=== PATIENT | male | born 1995 | race Caucasian/White ===

== ENCOUNTER 2017-01-26 17:17 | Emergency (ER) | payer BC ==
[~2017-01-26] VITALS: Ht 177.8 cm; Wt 97.0 kg
[~2017-01-26 17:17] MED LIST: CLR10 PO; CLXUNK PO; RSPUNK PO
[2017-01-26 17:21] VITALS: Ht 177.8 cm; Wt 97.0 kg
[2017-01-26] MEDS ORDERED: LISD60CA PO (17:36)
[2017-01-26 17:53] VITALS: TEMP 37
[2017-01-26] MEDS ORDERED: OXYCODONE HCL IR 5 MG TAB (IMMEDIATE RELEASE) PO STA (17:53)
[2017-01-26] MEDS ORDERED: CLIN150C PO (18:00)
[2017-01-26] MEDS ORDERED: CLINDAMYCIN HCL 150 MG CAP PO ONE (18:00)
[2017-01-26] MEDS ORDERED: OXYC1TAB3 PO (18:03)
[2017-01-26 18:12] VITALS: BP 142/70; PULSE 94; O2SAT 99
--- NOTE | 2017-01-26 21:19 | EMERGENCY ROOM VISIT NOTE ---
History Report prepared by Jovita: Madonna Barnes Under the Supervision of: Dr. Dustin Anderson D.O. First contact with patient: 17:25 Chief Complaint: DENTAL PAIN Stated Complaint: TOOTH PAIN, SWELLING REDNESS Nursing Triage Summary: right sided facial pain and swelling History of Present Illness The patient is a 21 year old male who presents to the Emergency Room with complaints of constant severe tooth pain beginning the other day. The patient states that the other day he began to feel tooth burning but the pain completely went away until today when he started to have severe tooth pain. He reports that he has a history of chipping his teeth with eating and normally has no pain with the chipping. The patient complains of facial swelling, radiating pain into right cheek, and throbbing pain. He denies any fever, chills , difficulty swallowing, pain with movement of eyes, swelling in his throat, and ear pain. He reports that his pain is worsened when something touches it and he has been taking ibuprofen without relief of symptoms. Source of History: patient Onset: the other day Position: teeth Symptom Intensity: severe Quality: other (throbbing) Timing: constant Modifying Factors (Worsening): other (touch) Associated Symptoms: No chills, No fevers Note: The patient complains of facial swelling, radiating pain into right cheek, and throbbing pain. He denies any difficulty swallowing, pain with movement of eyes , and ear pain. Review of Systems See HPI for pertinent positives & negatives. A total of 10 systems reviewed and were otherwise negative. Past Medical & Surgical Medical Problems: (1) ADHD (attention deficit hyperactivity disorder) Family History No pertinent family history stated. Social History Smoking Status: Current Every Day Smoker Marital Status: in relationship Occupation Status: employed Current/Historical Medications Scheduled Clindamycin Hcl (Cleocin), 450 MG PO TID Lisdexamfetamine Dimesylate (Vyvanse), 1 CAP PO DAILY Scheduled PRN Oxycodone Immediate Rel Tab (Roxicodone Ir), 5 MG PO Q4H PRN for Severe Pain Allergies Coded Allergies: Penicillins (Unverified Allergy, Unknown, 01/26/17) Physical Exam Vital Signs Date Time Temp Pulse Resp B/P Pulse Ox O2 Delivery O2 Flow Rate FiO2 01/26/17 18:12 94 16 142/70 99 01/26/17 17:53 37.0 01/26/17 17:21 84 20 154/89 98 Room Air Physical Exam GENERAL: sitting up in bed, uncomfortable, no distress, non-toxic EYE EXAM: normal conjunctiva, PERRL and EOM's intact EAR EXAM: TMs clear bilaterally. OROPHARYNX: no exudate, no erythema, lips, buccal mucosa, and tongue normal and mucous membranes are moist. No posterior pharyngeal swelling, no submandibular swelling, normal bonation, tolerating secretion, tenderness over the right upper 4,5 teeth, no appreciable abscess, mild swelling over the right cheek without significant erythema, no orbital involvement. NECK: supple, no nuchal rigidity, no adenopathy, non-tender, no stridor LUNGS: Clear to auscultation. Normal chest wall mechanics HEART: no murmurs, S1 normal and S2 normal ABDOMEN: abdomen soft, non-tender, normo-active bowel sounds, no masses, no rebound or guarding. UPPER EXTREMITIES: upper extremities are grossly normal. LOWER EXTREMITIES: No pitting edema. NEURO EXAM: Normal sensorium Medical Decision & Procedures Medications Administered Medications (Trade) Dose Ordered Sig/Jyotsna Route Start Time Stop Time Status Last Admin Dose Admin Clindamycin HCl (Cleocin Cap) 450 mg ONE ONCE PO 01/26/17 18:00 01/26/17 18:01 DC 01/26/17 18:07 450 MG Oxycodone HCl (Roxicodone Immediate Rel Tab) 5 mg NOW STAT PO 01/26/17 17:53 01/26/17 17:56 DC 01/26/17 18:06 5 MG ED Course ED COURSE: Vital signs were reviewed and normal The patients medical record was reviewed The above diagnostic studies were performed and reviewed. ED treatments and interventions as stated above. 1725: The patient was evaluated in room A9. A complete history and physical examination was performed. 1753: Oxycodone HCl 5mg PO. 1800: Cleocin Cap 450mg PO. 1801: Upon reevaluation, the patient is hemodynamically stable.I discussed my findings with the patient and he understands and agrees with the treatment plan. Based on the patients age, coexisting illnesses, exam and lab findings the decision to treat as an outpatient was made. The patient remained stable while under my care. The patient appeared well at the time of discharge. Medical Decision Differential diagnoses includes but is not limited to dental fracture, dental carries, and dental abscess. Patient is a 21-year-old male who presents to ER for dental pain on his #4. He notes that he has significant amount of pain and some swelling. Patient has no other complaints at this time. On exam there is no signs of preseptal or septal cellulitis. There is no signs of Dean angina. He has no trouble swallowing or pain back in her throat. Vitals are unremarkable. There is no periapical abscess. Patient was otherwise well-appearing. He does have an allergy to penicillins consequently was given clindamycin. I did not feel there is any benefit of blood work at this time. He was given OxyIR and discharged to follow-up with oral maxillary facial or his dentist on Saturday. Any worsening of his symptoms he was given strict instructions to return to the ER. Discussed with Pt concerning signs and symptoms to watch out for. Pt was instructed to follow up with their PCP and discussed with the patient their option to return to the ED at anytime for persistent or worsening symptoms. The appropriate anticipatory guidance and out-patient management, including indications for return to the emergency department, were explained at length to the patient and understood. [place] Drug Monitoring Program Search Results: patient reviewed within database, no issues identified Impression Primary Impression: Dental abscess Additional Impression: Pain, dental Scribe Attestation The scribe's documentation has been prepared under my direction and personally reviewed by me in its entirety. I confirm that the note above accurately reflects all work, treatment, procedures, and medical decision making performed by me. Departure Information Dispostion Home / Self-Care Prescriptions Oxycodone Immediate Rel Tab (ROXICODONE IR) 5 Mg Tab 5 MG PO Q4H Y for Severe Pain, #20 TAB Prov: Dustin Anderson, DO 01/26/17 Clindamycin Hcl (CLEOCIN) 150 Mg Cap 450 MG PO TID, #30 CAP Prov: Dustin Anderson, DO 01/26/17 Referrals Alea Stewart M.D. (MEDICAL) (PCP) Forms HOME CARE DOCUMENTATION FORM, IMPORTANT VISIT INFORMATION Patient Instructions Dental Abscess, My [facility] Additional Instructions Please follow up with your primary care doctor or dentist with in the next 24 hours. Any worsening of your symptoms, please return to the ED immediately. This includes fevers greater than 100.4, increased swelling of her face, difficulty swallowing, swelling around that eye, pain with movement of the eye, or any other concerning signs or symptoms from your standpoint. Please take antibiotics as prescribed. You should follow-up with your dentist or our oral surgeon on Saturday. Problem Qualifiers
== END 2017-01-26 18:14 | disposition home or self-care (01) ==
LOC: C.EDB 17:20 → C.EDA 18:14
DX: K04.7 Periapical abscess without sinus (principal); F90.0 Attention-deficit hyperactivity disorder, predominantly inattentive type; Z79.899 Other long term (current) drug therapy

== ENCOUNTER 2020-11-29 12:21 | Inpatient (IN) ==
[2020-11-29] MEDS ORDERED: ONDANSETRON INJ 2 MG/ML 2 ML VIAL IV STA (12:58)
[2020-11-29] MEDS ORDERED: SODIUM CHLORIDE 0.9% 1000ML 1,000 ML IV ONE (12:58)
[2020-11-29] MEDS ORDERED: MoRPHine SULFATE 4 MG/ML 1 ML CARP\\VIAL IV STA (12:58)
[2020-11-29 13:17] LABS: Basophils # (auto) 0.01 K/uL (0-0.2); Basophils % (auto) 0.1 %; Eosinophils # (auto) 0.07 K/uL (0-0.5); Eosinophils % (auto) 0.5 %; Hematocrit (blood only) 43.2 % (42-52); Hemoglobin 15.3 g/dL (14.0-18.0); Immature Granulocytes # (auto) 0.03 K/uL (0.00-0.02); Immature Granulocytes % (auto) 0.2 %; Lymphocytes # (auto) 1.59 K/uL (1.2-3.4); Mean Corpuscular Hgb Conc 35.4 g/dL (32-36); Mean Corpuscular Volume 90.4 fL (80-100); Mean Platelet Volume 10.1 fL (7.4-10.4); Monocytes % (auto) 7.6 %; Neutrophils # (auto) 11.64 K/uL (1.4-6.5); Neutrophils % (auto) 80.6 %; Platelet Count 312 K/uL (130-400); RDW Coefficient of Variation 12.3 % (11.5-14.5); RDW Standard Deviation 40.5 fL (36.4-46.3); Red Blood Count 4.78 M/uL (4.7-6.1); White Blood Count 14.44 K/uL (4.8-10.8)
[2020-11-29 13:33] LABS: Albumin Level 3.9 gm/dl (3.4-5.0); BUN Creatinine Ratio 4.3 (10-20); Calcium 9.2 mg/dl (8.5-10.1); Creatinine Clr Calc Pharmacy 126.6 ml/min; Est GFR (African American) 111.2; Potassium 3.2 mmol/L (3.5-5.1)
--- NOTE | 2020-11-29 13:33 | Emergency Department Note ---
History of Present Illness General Chief complaint: Dental/Oral Stated complaint: INFECTED TOOTH Time Seen by Provider: 11/29/20 12:35 History of Present Illness Maximum Pain Intensity: 7 This patient is a 25-year-old male who presents ambulatory to the emergency department for evaluation of throbbing upper tooth pain and facial swelling that started 2 days ago. The patient reports having a history of multiple dental caries and crowns in the past. He has not seen a dentist in quite some time due to insurance reasons. He has felt febrile at home, but did not take his temperature. He denies any difficulty swallowing or breathing. The pain is worse with opening the mouth and chewing. He had a telehealth visit 2 days ago and was put on clindamycin. He has had a total of 5 doses and notes that the facial swelling is getting worse. This prompted him to come to the emergency department for evaluation. Home Medications Medication Instructions Recorded Confirmed Type clindamycin HCl 300 mg PO TID 11/29/20 11/29/20 History lisdexamfetamine [Vyvanse] 60 mg PO QAM 11/29/20 11/29/20 History Allergies Allergy/AdvReac Type Severity Reaction Status Date / Time amoxicillin Allergy Unknown Unknown Unverified 11/29/20 14:19 Past Med/Surg History Medical History ADHD (attention deficit hyperactivity disorder) Social History Smoking Status: Current some day smoker Cigarettes Per Day: 1-2 per week; Second Hand Exposure: No; Do You Dip or Chew Tobacco: No; Tobacco Cessation Education Requested by Patient: No Hx Alcohol Use: Yes Alcohol type: wine Hx Substance Use: Yes Last Used Substance: Days (ago) Substance Use Type Other:: vivance per provider order Preferred Language: Syriac [employer] Clerk Required: No Current Living Situation: Significant Other Other Information That Helps Us Care for You: No Feels Safe at Home: Yes Safety Concerns: Feels Safe At This Time Assistive Devices: None Review of Systems A total of 10 systems reviewed and were otherwise negative Physical Exam Vital Signs Vital Signs - 24 hr 11/29/20 13:28 11/29/20 14:39 11/29/20 15:38 Temperature 37 C Temperature Source Oral Pulse Rate [Right Finger] 90 88 91 H Respiratory Rate 18 18 18 Respiratory Effort / Characteristics Non-Labored Spontaneous Non-Labored Spontaneous Respiratory Depth Normal Normal Blood Pressure [Right Arm] 131/86 128/79 137/85 Blood Pressure Mean [Right Arm] 101 95 102 Pulse Oximetry 98 97 100 Oxygen Delivery Method Room Air Room Air Constitutional WD/WN, vitals as above Eyes EOM intact bilaterally ENMT Small pustule noted on the upper gumline. Edema noted to the upper lip. Edema extends on the right side of the face up inferior to the right eye. Overall dentition is very poor. No edema noted in the hypoglossal area Neck trachea midline No stridor Respiratory normal respiratory effort, lungs clear to auscultation Cardiovascular RRR, no murmur, no edema Gastrointestinal (Abdomen) normal bowel sounds, soft, nontender, no hepatosplenomegaly Musculoskeletal no cyanosis or clubbing, extremities motor strength 5/5 Skin no rashes, warm and dry Neurologic Alert and oriented x3. No focal motor deficits. Psychiatric Acting appropriately Course Course Patient was seen and examined Vital signs including blood pressure were reviewed medications list was verified with patient Labs were obtained, and a saline lock was established Pain medication, fluids and IV antibiotics were ordered Imaging was ordered and reviewed Upon reevaluation, the patient was still complaining of pain. He was ordered more pain medication. We reviewed his results. He voiced understanding, and was in agreement with disposition. Consultations Consultation #1: Dr. Yeager Consultation #2: Hospitalist team Administered Medications Metronidazole (Flagyl) 500 mg in 100 mls @ 100 mls/hr IV Q8H [facility]; Protocol Stop: 12/09/20 18:59 Last Admin: 11/30/20 12:15 Dose: 100 mls/hr Documented by: [id number] Infusion: 11/30/20 03:19 Dose: 0 mls/hr Documented by: [id number] Admin: 11/30/20 02:19 Dose: 100 mls/hr Documented by: [id number] Infusion: 11/29/20 20:10 Dose: 0 mls/hr Documented by: [id number] Admin: 11/29/20 19:10 Dose: 100 mls/hr Documented by: [id number] Sodium Chloride (Nss 1000ml) 1,000 mls @ 125 mls/hr IV .Q8H ELADIA Stop: 12/29/20 17:53 Last Infusion: 11/30/20 03:19 Dose: 125 mls/hr Documented by: [id number] Infusion: 11/30/20 02:20 Dose: 0 mls/hr Documented by: [id number] Admin: 11/30/20 02:19 Dose: 125 mls/hr Documented by: [id number] Infusion: 11/30/20 02:19 Dose: 125 mls/hr Documented by: [id number] Admin: 11/29/20 19:10 Dose: 125 mls/hr Documented by: [id number] Vancomycin HCl 2,000 mg/ (Sodium Chloride) 540 mls @ 200 mls/hr IV Q8H ELADIA Stop: 12/09/20 15:59 Last Infusion: 11/30/20 09:59 Dose: 0 mls/hr Documented by: [id number] Admin: 11/30/20 07:17 Dose: 200 mls/hr Documented by: [id number] Infusion: 11/30/20 02:28 Dose: 0 mls/hr Documented by: [id number] Admin: 11/29/20 23:41 Dose: 200 mls/hr Documented by: [id number] Morphine Sulfate (Morphine Sulfate 4 Mg/Ml 1 Ml Carp\Vial) 3 mg IV Q4H PRN PRN Reason: pain Stop: 12/13/20 17:53 Last Admin: 11/30/20 00:33 Dose: 3 mg Documented by: [id number] Admin: 11/29/20 18:27 Dose: 3 mg Documented by: [id number] Discontinued Medications Chlorhexidine Gluconate (Chlorhexidine Gluconate 0.12% 480 Ml) Confirm Administered Dose 480 ml .ROUTE .STK-MED ONE Stop: 11/30/20 10:44 Last Admin: 11/30/20 12:05 Dose: 480 ml Documented by: [id number] Fentanyl Citrate (Fentanyl Citrate 100 Mcg/2 Ml Vial) 50 mcg IV Q5M PRN PRN Reason: PACU Use Only-Pain Stop: 11/30/20 17:53 Last Admin: 11/30/20 12:10 Dose: 50 mcg Documented by: [id number] Admin: 11/30/20 12:05 Dose: 50 mcg Documented by: [id number] Hydromorphone HCl (Hydromorphone Inj 0.5 Mg/0.5 Ml Syr) 0.5 mg IV NOW STA Stop: 11/29/20 15:20 Last Admin: 11/29/20 15:33 Dose: 0.5 mg Documented by: [id number] Sodium Chloride (Nss 1000ml) 1,000 mls @ 999 mls/hr IV .Q1H1M ONE Stop: 11/29/20 13:58 Last Infusion: 11/29/20 14:23 Dose: 0 mls/hr Documented by: [id number] Admin: 11/29/20 13:15 Dose: 999 mls/hr Documented by: [id number] Ceftriaxone Sodium (Rocephin) 2,000 mg in 70 mls @ 140 mls/hr IV NOW STA Stop: 11/29/20 14:58 Last Infusion: 11/29/20 15:31 Dose: 0 mls/hr Documented by: [id number] Admin: 11/29/20 15:01 Dose: 140 mls/hr Documented by: [id number] Vancomycin HCl 2,000 mg/ (Sodium Chloride) 540 mls @ 200 mls/hr IV NOW ONE Stop: 11/29/20 18:00 Last Infusion: 11/29/20 18:15 Dose: 0 mls/hr Documented by: [id number] Admin: 11/29/20 15:33 Dose: 200 mls/hr Documented by: [id number] Clindamycin Phosphate 600 mg/ (Dextrose) 54 mls @ 100 mls/hr IV ONE ONE Stop: 11/29/20 15:59 Last Infusion: 11/29/20 17:04 Dose: 0 mls/hr Documented by: [id number] Admin: 11/29/20 16:33 Dose: 100 mls/hr Documented by: [id number] Lorazepam (Ativan) 0.5 mg in 1 mls @ 1 mls/min IV NOW STA Stop: 11/29/20 15:53 Last Admin: 11/29/20 16:33 Dose: 1 mls/min Documented by: [id number] Potassium Chloride 40 meq/ (Dextrose/Sodium Chloride) 1,000 ml in 1,020 mls @ 125 mls/hr IV .Q8H10M ELADIA Stop: 12/29/20 16:14 Last Infusion: 11/29/20 19:10 Dose: 0 mls/hr Documented by: [id number] Admin: 11/29/20 17:03 Dose: 125 mls/hr Documented by: [id number] Ioversol (Ioversol 100ml) 94 ml IV ONCE ONE Stop: 11/29/20 14:43 Last Admin: 11/29/20 14:42 Dose: 94 ml Documented by: [id number] Ketorolac Tromethamine (Ketorolac 30 Mg/Ml Vial) 30 mg IV NOW ONE Stop: 11/29/20 15:20 Last Admin: 11/29/20 15:33 Dose: 30 mg Documented by: [id number] Lidocaine/Epinephrine (Lidocaine 2%/Epinephrine 1:100,000 1.8 Ml Cartridge) Confirm Administered Dose 10.8 ml .ROUTE .STK-MED ONE Stop: 11/30/20 10:43 Last Admin: 11/30/20 12:05 Dose: 7.2 ml Documented by: [id number] Lorazepam (Lorazepam 2 Mg/Ml Vial (Im Use)) 1 mg IM NOW STA Stop: 11/29/20 15:53 Last Admin: 11/29/20 16:33 Dose: Not Given Documented by: [id number] Morphine Sulfate (Morphine Sulfate 4 Mg/Ml 1 Ml Carp\Vial) 4 mg IV NOW STA Stop: 11/29/20 12:59 Last Admin: 11/29/20 13:15 Dose: 4 mg Documented by: [id number] Ondansetron HCl (Ondansetron Inj 2 Mg/Ml 2 Ml Vial) 4 mg IV NOW STA Stop: 11/29/20 12:59 Last Admin: 11/29/20 13:15 Dose: 4 mg Documented by: [id number] Potassium Chloride (Potassium Chloride 20 Meq/15 Ml Udc) 40 meq PO NOW STA Stop: 11/29/20 17:55 Last Admin: 11/29/20 20:59 Dose: 40 meq Documented by: [id number] Medical Decision Making Laboratory Data Result diagrams: 11/30/20 06:49 11/30/20 06:49 Lab Results 11/29/20 11/29/20 11/29/20 Range/Units 13:02 13:02 13:20 WBC 14.44 H (4.8-10.8) K/uL RBC 4.78 (4.7-6.1) M/uL Hgb 15.3 (14.0-18.0) g/dL Hct 43.2 (42-52) % MCV 90.4 (80-100) fL MCH 32.0 (25-34) pg MCHC 35.4 (32-36) g/dL RDW Std Deviation 40.5 (36.4-46.3) fL RDW Coeff of Autumn 12.3 (11.5-14.5) % Plt Count 312 (130-400) K/uL MPV 10.1 (7.4-10.4) fL Immature Gran % (Auto) 0.2 % Neut % (Auto) 80.6 % Lymph % (Auto) 11.0 % [place] % (Auto) 7.6 % Eos % (Auto) 0.5 % Baso % (Auto) 0.1 % Neut # (Auto) 11.64 H (1.4-6.5) K/uL Lymph # (Auto) 1.59 (1.2-3.4) K/uL [place] # (Auto) 1.10 H (0.11-0.59) K/uL Eos # (Auto) 0.07 (0-0.5) K/uL Baso # (Auto) 0.01 (0-0.2) K/uL Immature Gran # (Auto) 0.03 H (0.00-0.02) K/uL Sodium 135 L (136-145) mmol/L Potassium 3.2 L (3.5-5.1) mmol/L Chloride 104 (98-107) mmol/L Carbon Dioxide 24 (21-32) mmol/L Anion Gap 8.0 (3-11) BUN 5 L (7-18) mg/dl Creatinine 1.07 (0.6-1.4) mg/dl Est Cr Clr Drug Dosing 126.6 ml/min Est GFR ( Amer) 111.2 Est GFR (Non-Af Amer) 96.0 BUN/Creatinine Ratio 4.3 L (10-20) Glucose 116 H (70-99) mg/dl Lactate 1.9 (0.4-2.0) mmol/L Calcium 9.2 (8.5-10.1) mg/dl Total Bilirubin 1.4 H (0.2-1) mg/dl AST 32 (15-37) U/L ALT 77 (12-78) U/L Alkaline Phosphatase 123 H (45-117) U/L Total Protein 8.3 H (6.4-8.2) gm/dl Albumin 3.9 (3.4-5.0) gm/dl Globulin 4.4 H (2.5-4.0) gm/dl Albumin/Globulin Ratio 0.9 (0.9-2) Imaging Data Attestation: I personally reviewed and interpreted this imaging study as follows: Radiologist's Impression: CT facial bones with IV contrast IMPRESSION: 1. Poor dentition with multiple dental apical abscesses. 2. There is a large dental apical abscess involving the right maxillary central incisor with associated destruction of the anterior maxillary cortex. This is contiguous with a 21 mm right-sided premaxillary soft tissue abscess. There are secondary soft tissue inflammatory changes with thickening of the right nasolacrimal fold. ACT 112: Negative or not required by law. Electronically signed by: Govind Grant M.D. 11/29/2020 2:57 PM Dictated: 11/29/201450 Transcribed: 11/29/201450 [facility] Narrative Differential diagnosis: Dental abscess, dental caries, facial cellulitis, orbital cellulitis, sepsis, among others were considered This patient is a 25-year-old male who presents emergency department complaining of significant upper dental pain and facial swelling that has gotten progressively worse over the last 2 days. On exam, he does have very poor dentition with a visible small abscess in the upper gumline. This is also causing significant swelling of the lip and to the right side of the face. He has been on clindamycin and has had 5 doses with no improvement. He has a reported amoxicillin allergy. A work-up was performed. There is leukocytosis noted. A CT of the facial bones with IV contrast is consistent with a fairly sizable dental abscess causing cellulitis. The case was discussed with maxillofacial surgery. Dr. Yeager kindly agreed to evaluate the patient for likely surgical intervention and admission to the hospital as he is failing outpatient therapy with the clindamycin. The patient is in agreement and remained stable in the emergency department. Impression & Plan Cellulitis diffuse, face, Abscess, dental Discharge Plan Visit Data Chief Complaint: Dental/Oral Stated Complaint: INFECTED TOOTH ED Provider: Dustin Anderson ED Midlevel Provider: Susan Tovar Discharge Problem: Cellulitis diffuse, face, Abscess, dental Patient Disposition: Admitted As Inpatient Condition: Good Discharge Instructions Interventions: ED Discharge Assessment Last Done: 11/29/20 17:27
[2020-11-29 13:36] LABS: Albumin Globulin Ratio 0.9 (0.9-2); Bilirubin,Total 1.4 mg/dl (0.2-1); Globulin 4.4 gm/dl (2.5-4.0); Total Protein 8.3 gm/dl (6.4-8.2)
[2020-11-29] MEDS ORDERED: cefTRIAXone SODIUM 2,000 MG/70 ML BAG IV STA (14:29)
[2020-11-29] MEDS ORDERED: OPTIRAY 320 100ml IV ONE (14:42)
--- NOTE | 2020-11-29 14:59 | CT Scan Report ---
CT facial bones w con CT DOSE: 267.82 mGy.cm CLINICAL HISTORY: R upper dental infection facial pain TECHNIQUE: The patient was scanned in a dynamic helical fashion during intravenous administration of 90 is of Optiray 320. A dose lowering technique was utilized adhering to the principles of ALARA. COMPARISON STUDY: None. FINDINGS: The visualized portions of the brain appear unremarkable. No orbital lesions are visualized. There is mild soft tissue thickening in the region of the right nasolacrimal fold. There is a 21 mm right premaxillary fluid collection consistent with a soft tissue abscess. There is an adjacent dental apical abscess involving the right maxillary central incisor with cortica l destruction of the anterior maxillary cortex. There are additional right-sided dental apical absces ses. There is also a left maxillary molar dental apical abscess. Mildly prominent cervical lymph nodes are likely reactive. No salivary gland masses are visualized. There is no evidence for airway compromise. IMPRESSION: 1. Poor dentition with multiple dental apical abscesses. 2. There is a large dental apical abscess involving the right maxillary central incisor with associat ed destruction of the anterior maxillary cortex. This is contiguous with a 21 mm right-sided premaxil eric soft tissue abscess. There are secondary soft tissue inflammatory changes with thickening of the right nasolacrimal fold. ACT 112: Negative or not required by law. Electronically signed by: Govind Grant M.D. 11/29/2020 2:57 PM
[2020-11-29] MEDS ORDERED: VANCOMYCIN CONSULT ACTIVE PRN (15:19)
[2020-11-29] MEDS ORDERED: KETOROLAC 30 MG/ML VIAL IV ONE (15:19)
[2020-11-29] MEDS ORDERED: HYDROmorphone INJ 0.5 MG/0.5 ML SYR IV STA (15:19)
[2020-11-29] MEDS ORDERED: VANCOMYCIN HCL 2,000 MG in SODIUM CHLORIDE 0.9% 500 ML IV ONE (15:19)
[2020-11-29] MEDS ORDERED: CLINDAMYCIN 600 MG in DEXTROSE 5% 50 ML IV ONE (15:27)
[2020-11-29] MEDS ORDERED: LORazepam 2 MG/ML VIAL (IM USE) IM STA (15:52)
[2020-11-29] MEDS ORDERED: LORazepam 0.5 MG/1 ML VIAL IV STA (15:52)
[2020-11-29] MEDS ORDERED: POTASSIUM CHLORIDE 40 MEQ in D5W AND 1/2NSS 1,000 ML/1,000 ML BAG IV SCH (16:15)
[2020-11-29] MEDS ORDERED: POTASSIUM CHLORIDE 20 MEQ/15 ML UDC PO STA (17:54)
[2020-11-29] MEDS: MoRPHine SULFATE 4 MG/ML 1 ML CARP\\VIAL IV PRN (18:27)
[2020-11-29] MEDS ORDERED: ACETAMINOPHEN 325 MG TAB PO PRN (18:53)
[2020-11-29] MEDS: SODIUM CHLORIDE 0.9% 1000ML 1,000 ML IV SCH (19:10)
[2020-11-29] MEDS: metroNIDAZOLE 500 MG/100 ML BAG IV SCH (19:10)
--- NOTE | 2020-11-29 21:38 | History & Physical Report ---
Date of Service November 29, 2020 Assessment & Plan (1) Dental abscess: Dental abscess Facial CT: 1. Poor dentition with multiple dental apical abscesses. 2. There is a large dental apical abscess involving the right maxillary central incisor with associated destruction of the anterior maxillary cortex. This is contiguous with a 21 mm right-sided premaxillary soft tissue abscess. There are secondary soft tissue inflammatory changes with thickening of the right nasolacrimal fold. --No signs of sepsis --Blood cultures pending --Start ceftriaxone plus Flagyl (Unasyn contraindicated secondary to penicillin allergy) --As needed morphine, tramadol; IV fluids --N.p.o. post midnight, maxillofacial surgeon Dr. Yeager consulted, for dental extraction tomorrow History of ADHD --Continue usual Vyvanse DVT prophylaxis SCDs for now Disposition Anticipate discharge to home medically stable Discussed with patient in detail at length-all questions were answered He is understanding, agreeable, comfortable plan of care Admission and Anticipated Discharge Date Admission Date: November 29, 2020 History of Present Illness Patient is a 25-year-old male with history of ADHD,tooth pain and facial swelling x2 days. Patient states that he was at usual state of health until 2 days ago when he started to have upper tooth pain which then progressed Associated with right-sided facial swelling. No fevers or chills, problems with swallowing or breathing. He had a telehealth visit 2 days ago and was placed on a course of clindamycin. Patient had total of 5 doses but was not improving. At the ER, patient was given ceftriaxone and clindamycin. On exam, patient is seen resting in bed, comfortable, not in distress States pain is adequately controlled, denies shortness of breath, tongue swelling, throat pain. No other symptoms Primary Care Provider: Alea Stewart MD Allergies Allergy/AdvReac Type Severity Reaction Status Date / Time amoxicillin Allergy Unknown Unknown Unverified 11/29/20 14:19 Home Medications Medication Instructions Recorded Confirmed Type clindamycin HCl 300 mg PO TID 11/29/20 11/29/20 History lisdexamfetamine [Vyvanse] 60 mg PO QAM 11/29/20 11/29/20 History Past Med/Surg History Medical History ADHD (attention deficit hyperactivity disorder) Social History Smoking Status: Current some day smoker Cigarettes Per Day: 1-2 per week; Second Hand Exposure: No; Do You Dip or Chew Tobacco: No; Tobacco Cessation Education Requested by Patient: No Hx Alcohol Use: Yes Alcohol type: wine Hx Substance Use: Yes Last Used Substance: Days (ago) Substance Use Type Other:: vivance per provider order Preferred Language: Marshallese 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 Current Living Situation: Significant Other Other Information That Helps Us Care for You: No Feels Safe at Home: Yes Safety Concerns: Feels Safe At This Time Assistive Devices: None Review of Systems Review of Systems: All systems reviewed & are unremarkable except as noted in Subjective Physical Exam Physical Exam: General- oriented x 3, not in distress, speaks in sentences with no effort or accessory muscle use Head- atraumatic Eyes- PERRL, EOMI, anicteric ENT-positive right lower face swelling, upper lip swelling No trismus Neck- supple, no JVD, no adenopathy, no thyromegaly; carotids +2/2, no bruits appreciated Lungs- clear to auscultation bilaterally, no rales/wheezes Heart- normal rate, regular rhythm; no murmur, no gallop, no rub appreciated Abdomen- normal bowel sounds, nondistended, soft, nontender, no masses or hepatosplenomegaly Extremities- no pretibial edema, no calf tenderness; peripheral pulses intact Neuro- alert, oriented x 3; CN 2-12 grossly intact; motor 5/5 bilaterally;sensation 100% on all extremities; no other gross focal neurologic deficits Skin- warm & dry Results & Data Results & Data ([facility]) Vital Signs (Past 12 Hours) Vital Signs Temp Pulse Pulse Resp BP BP BP 11/29/20 18:32 36.9 C 95 H 18 137/86 11/29/20 17:03 95 H 18 138/90 11/29/20 15:38 91 H 18 137/85 11/29/20 14:39 88 18 128/79 11/29/20 13:28 37 C 90 18 131/86 11/29/20 12:24 36.5 C 112 H 20 153/82 H Pulse Ox 11/29/20 18:32 100 11/29/20 17:03 98 11/29/20 15:38 100 11/29/20 14:39 97 11/29/20 13:28 98 11/29/20 12:24 96 Laboratory Results Laboratory Results - last 24 hr 11/29/20 11/29/20 11/29/20 13:02 13:02 13:20 WBC 14.44 H RBC 4.78 Hgb 15.3 Hct 43.2 MCV 90.4 MCH 32.0 MCHC 35.4 RDW Std Deviation 40.5 RDW Coeff of Autumn 12.3 Plt Count 312 MPV 10.1 Immature Gran % (Auto) 0.2 Neut % (Auto) 80.6 Lymph % (Auto) 11.0 [place] % (Auto) 7.6 Eos % (Auto) 0.5 Baso % (Auto) 0.1 Neut # (Auto) 11.64 H Lymph # (Auto) 1.59 [place] # (Auto) 1.10 H Eos # (Auto) 0.07 Baso # (Auto) 0.01 Immature Gran # (Auto) 0.03 H Sodium 135 L Potassium 3.2 L Chloride 104 Carbon Dioxide 24 Anion Gap 8.0 BUN 5 L Creatinine 1.07 Est Cr Clr Drug Dosing 126.6 Est GFR ( Amer) 111.2 Est GFR (Non-Af Amer) 96.0 BUN/Creatinine Ratio 4.3 L Glucose 116 H Lactate 1.9 Calcium 9.2 Total Bilirubin 1.4 H AST 32 ALT 77 Alkaline Phosphatase 123 H Total Protein 8.3 H Albumin 3.9 Globulin 4.4 H Albumin/Globulin Ratio 0.9 SARS-CoV-2 Ag (Rapid) 11/29/20 Unknown WBC RBC Hgb Hct MCV MCH MCHC RDW Std Deviation RDW Coeff of Autumn Plt Count MPV Immature Gran % (Auto) Neut % (Auto) Lymph % (Auto) [place] % (Auto) Eos % (Auto) Baso % (Auto) Neut # (Auto) Lymph # (Auto) [place] # (Auto) Eos # (Auto) Baso # (Auto) Immature Gran # (Auto) Sodium Potassium Chloride Carbon Dioxide Anion Gap BUN Creatinine Est Cr Clr Drug Dosing Est GFR ( Amer) Est GFR (Non-Af Amer) BUN/Creatinine Ratio Glucose Lactate Calcium Total Bilirubin AST ALT Alkaline Phosphatase Total Protein Albumin Globulin Albumin/Globulin Ratio SARS-CoV-2 Ag (Rapid) Negative Code Status & VTE Plan VTE Prophylaxis Plan VTE Prophylaxis will be ordered: Yes
--- NOTE | 2020-11-29 21:39 | Oral/Maxillofacial Consult ---
Date of Consultation November 29, 2020 Oral Maxillofacial Surgery Exam This is a true emergency and surgery is necessary after 8-12 hours of IV antib iotics. Patient has infection of the dangerous area of the face. Upper lip and intranasal is swollen, Naso-labial fold is swollen. He failed out patient therapy. Surgery is medically necessary and urgently needed LINDA to drain the infection. I&D is medically necessary with inpatient IV antibiotics Present Complaint: I have pain/swelling/drainage from my infected upper front teeth. Root canal completed in the past with crowns, now gross swelling of upper lip and naso-labial area with right periorbital swelling. Symptoms have been ongoing for a while they would come and go. Was placed on Clindamycin 48 hours ago --swelling got worse with pain. Oral Exam: Finding-swollen upper lip and base of the nose, tender gingival tissue with deep pocket formation. Pus drainage, loose teeth # 7,8 Fractured # 5 and # 18 2 CM radiolucent cyst of premaxilla with bone defect. I&D with extractions are clinical indicated. Imaging: CT--I did an independent review of the CT scan and formed my own opinion regarding the teeth and large cyst right Pre-Maxilla. The CT was reviewed, there are abnormal findings associate with teeth 5,7,8,18, large 2 cm radiolucent area with bony destruction anterior maxilla extending on to the palate The TMJ are well positioned and no evidence of bony pathology. The sinus, supporting Evaluated the nerve/sinus relationship to the roots of the teeth. The following teeth are decayed/fractured--# 5,7,8,18 Soft tissue: floor of the mouth, tongue, posterior pharyngeal area all with in normal limits, no pathology or abnormal findings noted hard/soft palate--swelling anterior naso labial fold and anterior hard palate from infected cyst 2 cm Gross swelling upper lip into floor of the nose and right periorbital area. very loose teeth # 7,8 Oral Care: Overall oral care is fair Evidence of early on set periodontal disease Occlusion: Class I TMJ exam: No pop, clicking, pain, good ROM, No history of TMJ injury or dysfunction Periodontal exam: inflamed gingival tissue with evidence of periodontal pathology, deep pockets, gingivitis and acute swelling Head/Neck exam: Neck is supple, FROM, Able to extend and flex neck w/o difficulty, no masses, no abnormalities, no airway issues, no evidence of sleep apnea. Treatment Plan: Set up with general anesthesia in hospital due to complexity of the procedure tomorrow AM Plan intraoral I&D of naso-labial and periorbital abscess C&S of drainage Extraction of 5,7,8,18 curetment of 2 cm pre-maxillary/ palatal cyst 24 hr of post up IV antibiotics I reviewed the treatment plan and consent with the patient. Understanding was expressed. Time was given for questions regarding the surgery, risks and post op care. Discussed alternative to treatment--procedure as planned, Do not do surgery This is an urgent case and procedure must be done Weds AM with GA in OR. Risks discussed: Pain,swelling,infection, dry socket, delayed healing, nerve injury to face,lips,tongue,chin area which could be permanent (rare). TMJ, jaw stiffness, change in bite (rare), ear pain (referred). Sinus problems like fistula or infection. Need to leave a small root fragment in place to avoid injury to nerve or sinus. Relationship of teeth to nerve/sinus and risk of jaw fracture. Need for future bone grafts/ replacement of teeth Need for routine dental care and dental follow up Home care reviewed: tooth brushing, rinsing, follow up care with Dr Yeager. diet=[id number] dental. Discussed activity level, driving/work while on Rx pain Meds. Surgery Nov 30 2020 in OR [facility]. History of Present Illness Attending Physician: George Carrion MD Allergies Allergy/AdvReac Type Severity Reaction Status Date / Time amoxicillin Allergy Unknown Unknown Unverified 11/29/20 14:19 Home Medications Medication Instructions Recorded Confirmed Type clindamycin HCl 300 mg PO TID 11/29/20 11/29/20 History lisdexamfetamine [Vyvanse] 60 mg PO QAM 11/29/20 11/29/20 History Patient History Medical History ADHD (attention deficit hyperactivity disorder) Social History Smoking Status: Current some day smoker Cigarettes Per Day: 1-2 per week; Second Hand Exposure: No; Do You Dip or Chew Tobacco: No; Tobacco Cessation Education Requested by Patient: No Hx Alcohol Use: Yes Alcohol type: wine Hx Substance Use: Yes Last Used Substance: Days (ago) Substance Use Type Other:: vivance per provider order 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 Current Living Situation: Significant Other Other Information That Helps Us Care for You: No Feels Safe at Home: Yes Safety Concerns: Feels Safe At This Time Assistive Devices: None Physical Exam Constitutional: WD/WN, vitals as above well nourished and + acute distress Eyes: PERRL, conjunctivae normal, anicteric sclerae normal visual kam by confrontation ENMT: Nose: + nasal mucous membrane abnormality, + nasal discharge, + nare abnormality, + facial exam abnormality, + face asymmetric and + facial tenderness Mouth: + lip abnormality, + malodorous breath, + gingival abnormality, + dental caries, + dental restorations, + poor dentition and + loose teeth Mallampati Class: III Throat: uvula midline grossly swollen upper lip loose anterior teeth large cyst like lesion anterior maxilla Neck: trachea midline, no thyromegaly trachea midline Neurologic: PERRL, EOMI, accommodation nl, no face palsy, no dysarthria Cranial Nerves: PERRL, tongue midline, normal gag reflex, normal hearing and no nystagmus Psychiatric: Orientation: oriented x 3 Lymphatic: no cervical or axillary lymphadenopathy Results & Data ([facility]) Vital Signs (Past 12 Hours) Vital Signs Temp Pulse Pulse Resp BP BP BP 11/29/20 18:32 36.9 C 95 H 18 137/86 11/29/20 17:03 95 H 18 138/90 11/29/20 15:38 91 H 18 137/85 11/29/20 14:39 88 18 128/79 11/29/20 13:28 37 C 90 18 131/86 11/29/20 12:24 36.5 C 112 H 20 153/82 H Pulse Ox 11/29/20 18:32 100 11/29/20 17:03 98 11/29/20 15:38 100 11/29/20 14:39 97 11/29/20 13:28 98 11/29/20 12:24 96 PG Care Time/CCT Total # of Minutes Spent Total Time Spent with Patient: Total time spent is greater than 50% in coordination of care (as documented) at patient's floor/unit and/or counseling patient: Coding Level of Care Code 77053 Inpt Consult Level 4
--- NOTE | 2020-11-29 22:11 | Pharmacy Report ---
Pharmacy Abx Dose Short Note - Date of Service November 29, 2020 - Assessment & Plan Assessment 25 year old M receiving empiric vancomycin, ceftriaxone and metronidazole for dental abscesses * Plan for intraoral I&D of naso-labial and periorbital abscess and multiple extractions for 1/ Plan Vancomycin * 2000 mg IV (~20 mg/kg) IV q8 hours * aggressive dosing utilized based on age and excellent renal function * Goal trough level: 15 mcg/mL * Defer levels/monitoring to day shift clinical pharmacist - will depend on planned duration of treatment Pharmacy will continue to follow and will adjust dose/frequency as necessary. Thank you.
[2020-11-29] MEDS: VANCOMYCIN HCL 2,000 MG in SODIUM CHLORIDE 0.9% 500 ML IV SCH (23:41)
[2020-11-30] MEDS: MoRPHine SULFATE 4 MG/ML 1 ML CARP\\VIAL IV PRN ×3 (00:33→18:12)
[2020-11-30] MEDS: metroNIDAZOLE 500 MG/100 ML BAG IV SCH ×3 (02:19→20:48)
[2020-11-30] MEDS: SODIUM CHLORIDE 0.9% 1000ML 1,000 ML IV SCH ×2 (02:19→13:18)
[2020-11-30 07:02] LABS: Basophils # (auto) 0.03 K/uL (0-0.2); Basophils % (auto) 0.3 %; Eosinophils # (auto) 0.23 K/uL (0-0.5); Eosinophils % (auto) 2.5 %; Hemoglobin 12.4 g/dL (14.0-18.0); Immature Granulocytes # (auto) 0.01 K/uL (0.00-0.02); Immature Granulocytes % (auto) 0.1 %; Lymphocytes # (auto) 1.57 K/uL (1.2-3.4); Lymphocytes % (auto) 17.2 %; Mean Corpuscular Hemoglobin 32.7 pg (25-34); Mean Corpuscular Hgb Conc 35.4 g/dL (32-36); Mean Corpuscular Volume 92.3 fL (80-100); Mean Platelet Volume 9.9 fL (7.4-10.4); Monocytes # (auto) 0.99 K/uL (0.11-0.59); Monocytes % (auto) 10.8 %; Neutrophils # (auto) 6.31 K/uL (1.4-6.5); Neutrophils % (auto) 69.1 %; Platelet Count 250 K/uL (130-400); RDW Coefficient of Variation 12.4 % (11.5-14.5); RDW Standard Deviation 42.1 fL (36.4-46.3); Red Blood Count 3.79 M/uL (4.7-6.1); White Blood Count 9.14 K/uL (4.8-10.8)
[2020-11-30] MEDS: VANCOMYCIN HCL 2,000 MG in SODIUM CHLORIDE 0.9% 500 ML IV SCH ×2 (07:17→16:40)
[2020-11-30 07:34] LABS: Calcium 8.1 mg/dl (8.5-10.1); Creatinine Clr Calc Pharmacy 162.5 ml/min; Est GFR (Non-African American) 121.7; Potassium 3.9 mmol/L (3.5-5.1)
--- NOTE | 2020-11-30 08:14 | Hospitalist Progress Note ---
Date of Service November 30, 2020 Assessment & Plan (1) Dental abscess: Dental abscess Facial CT: 1. Poor dentition with multiple dental apical abscesses. 2. There is a large dental apical abscess involving the right maxillary central incisor with associated destruction of the anterior maxillary cortex. This is contiguous with a 21 mm right-sided premaxillary soft tissue abscess. There are secondary soft tissue inflammatory changes with thickening of the right nasolacrimal fold. --No signs of sepsis --Blood cultures pending --Started ceftriaxone plus Flagyl (Unasyn contraindicated secondary to penicillin allergy), vanco --As needed morphine, tramadol; IV fluids --maxillofacial surgeon Dr. Yeager consulted -- pt is now (11/30/2020) s/p Incision and Drainage Naso- Facial Infection and Incision and Drainage Left subperiosteal abscess ,(Not Applicable) - Angel Yeager DMD s Extraction of Teeth 4, 7, 8, 18 - Angel Yeager DMD --cultx from OR - pending History of ADHD --Continue usual Vyvanse DVT prophylaxis SCDs for now Disposition Anticipate discharge to home when medically stable Admission and Anticipated Discharge Date Admission Date: November 29, 2020 Subjective Pt seen in follow up of dental abscesses. Pt is laying in bed in NAD, underwent I&D and multiple tooth extraction w/ Dr. Yeager. Pain now well controlled. No fever, chills, chest pain, shortness of breath, abd. pain, nausea. Review of Systems Review of Systems: All systems reviewed & are unremarkable except as noted in HPI & below Constitutional: no fever and no chills Respiratory: no cough and no dyspnea Cardiovascular: no chest pain and no palpitations Gastrointestinal: no abdominal pain, no nausea and no vomiting Physical Exam Physical Exam: General- young male, alert and oriented x 3, not in distress, speaks in sentences with no effort or accessory muscle use Head- atraumatic Eyes- PERRL, EOMI, anicteric ENT-positive right lower face swelling, upper lip swelling Neck- supple, no JVD Lungs- clear to auscultation bilaterally, no rales/wheezes Heart- normal rate, regular rhythm; no murmur, no gallop, no rub appreciated Abdomen- normal bowel sounds, nondistended, soft, nontender Extremities- no pretibial edema, no calf tenderness; peripheral pulses intact Neuro- alert, oriented x 3; CN 2-12 grossly intact; motor 5/5 bilaterally;sensation 100% on all extremities; no other gross focal neurologic deficits Skin- warm & dry Results & Data Results & Data ([facility]) Vital Signs (Past 12 Hours) Vital Signs Temp Pulse Resp BP Pulse Ox 11/30/20 07:08 37.4 C 97 H 18 111/67 96 11/29/20 23:31 37.8 C H 107 H 17 152/91 H 93 Laboratory Results 11/30/20 11/30/20 11/30/20 Range/Units 07:22 07:22 06:49 WBC (4.8-10.8) K/uL RBC (4.7-6.1) M/uL Hgb (14.0-18.0) g/dL Hct (42-52) % MCV (80-100) fL MCH (25-34) pg MCHC (32-36) g/dL RDW Std Deviation (36.4-46.3) fL RDW Coeff of Autumn (11.5-14.5) % Plt Count (130-400) K/uL MPV (7.4-10.4) fL Immature Gran % (Auto) % Neut % (Auto) % Lymph % (Auto) % [place] % (Auto) % Eos % (Auto) % Baso % (Auto) % Neut # (Auto) (1.4-6.5) K/uL Lymph # (Auto) (1.2-3.4) K/uL [place] # (Auto) (0.11-0.59) K/uL Eos # (Auto) (0-0.5) K/uL Baso # (Auto) (0-0.2) K/uL Immature Gran # (Auto) (0.00-0.02) K/uL Sodium 142 D (136-145) mmol/L Potassium 3.9 D (3.5-5.1) mmol/L Chloride 112 H (98-107) mmol/L Carbon Dioxide 24 (21-32) mmol/L Anion Gap 6.0 (3-11) BUN 4 L (7-18) mg/dl Creatinine 0.84 (0.6-1.4) mg/dl Est Cr Clr Drug Dosing 162.5 ml/min Est GFR ( Amer) 141.0 Est GFR (Non-Af Amer) 121.7 BUN/Creatinine Ratio 5.0 L (10-20) Glucose 106 H (70-99) mg/dl Lactate (0.4-2.0) mmol/L Calcium 8.1 L (8.5-10.1) mg/dl Total Bilirubin (0.2-1) mg/dl AST (15-37) U/L ALT (12-78) U/L Alkaline Phosphatase (45-117) U/L Total Protein (6.4-8.2) gm/dl Albumin (3.4-5.0) gm/dl Globulin (2.5-4.0) gm/dl Albumin/Globulin Ratio (0.9-2) COVID-19 Eval Order Covid19 IDNow [facility] SARS-CoV-2, RNA, NAAT NEGATIVE (NEGATIVE) SARS-CoV-2 Ag (Rapid) (Negative) 11/30/20 11/29/20 11/29/20 Range/Units 06:49 Unknown 13:20 WBC 9.14 (4.8-10.8) K/uL RBC 3.79 L (4.7-6.1) M/uL Hgb 12.4 L (14.0-18.0) g/dL Hct 35.0 L (42-52) % MCV 92.3 (80-100) fL MCH 32.7 (25-34) pg MCHC 35.4 (32-36) g/dL RDW Std Deviation 42.1 (36.4-46.3) fL RDW Coeff of Autumn 12.4 (11.5-14.5) % Plt Count 250 (130-400) K/uL MPV 9.9 (7.4-10.4) fL Immature Gran % (Auto) 0.1 % Neut % (Auto) 69.1 % Lymph % (Auto) 17.2 % [place] % (Auto) 10.8 % Eos % (Auto) 2.5 % Baso % (Auto) 0.3 % Neut # (Auto) 6.31 (1.4-6.5) K/uL Lymph # (Auto) 1.57 (1.2-3.4) K/uL [place] # (Auto) 0.99 H (0.11-0.59) K/uL Eos # (Auto) 0.23 (0-0.5) K/uL Baso # (Auto) 0.03 (0-0.2) K/uL Immature Gran # (Auto) 0.01 (0.00-0.02) K/uL Sodium (136-145) mmol/L Potassium (3.5-5.1) mmol/L Chloride (98-107) mmol/L Carbon Dioxide (21-32) mmol/L Anion Gap (3-11) BUN (7-18) mg/dl Creatinine (0.6-1.4) mg/dl Est Cr Clr Drug Dosing ml/min Est GFR ( Amer) Est GFR (Non-Af Amer) BUN/Creatinine Ratio (10-20) Glucose (70-99) mg/dl Lactate 1.9 (0.4-2.0) mmol/L Calcium (8.5-10.1) mg/dl Total Bilirubin (0.2-1) mg/dl AST (15-37) U/L ALT (12-78) U/L Alkaline Phosphatase (45-117) U/L Total Protein (6.4-8.2) gm/dl Albumin (3.4-5.0) gm/dl Globulin (2.5-4.0) gm/dl Albumin/Globulin Ratio (0.9-2) COVID-19 Eval Order SARS-CoV-2, RNA, NAAT (NEGATIVE) SARS-CoV-2 Ag (Rapid) Negative (Negative) 11/29/20 11/29/20 Range/Units 13:02 13:02 WBC 14.44 H (4.8-10.8) K/uL RBC 4.78 (4.7-6.1) M/uL Hgb 15.3 (14.0-18.0) g/dL Hct 43.2 (42-52) % MCV 90.4 (80-100) fL MCH 32.0 (25-34) pg MCHC 35.4 (32-36) g/dL RDW Std Deviation 40.5 (36.4-46.3) fL RDW Coeff of Autumn 12.3 (11.5-14.5) % Plt Count 312 (130-400) K/uL MPV 10.1 (7.4-10.4) fL Immature Gran % (Auto) 0.2 % Neut % (Auto) 80.6 % Lymph % (Auto) 11.0 % [place] % (Auto) 7.6 % Eos % (Auto) 0.5 % Baso % (Auto) 0.1 % Neut # (Auto) 11.64 H (1.4-6.5) K/uL Lymph # (Auto) 1.59 (1.2-3.4) K/uL [place] # (Auto) 1.10 H (0.11-0.59) K/uL Eos # (Auto) 0.07 (0-0.5) K/uL Baso # (Auto) 0.01 (0-0.2) K/uL Immature Gran # (Auto) 0.03 H (0.00-0.02) K/uL Sodium 135 L (136-145) mmol/L Potassium 3.2 L (3.5-5.1) mmol/L Chloride 104 (98-107) mmol/L Carbon Dioxide 24 (21-32) mmol/L Anion Gap 8.0 (3-11) BUN 5 L (7-18) mg/dl Creatinine 1.07 (0.6-1.4) mg/dl Est Cr Clr Drug Dosing 126.6 ml/min Est GFR ( Amer) 111.2 Est GFR (Non-Af Amer) 96.0 BUN/Creatinine Ratio 4.3 L (10-20) Glucose 116 H (70-99) mg/dl Lactate (0.4-2.0) mmol/L Calcium 9.2 (8.5-10.1) mg/dl Total Bilirubin 1.4 H (0.2-1) mg/dl AST 32 (15-37) U/L ALT 77 (12-78) U/L Alkaline Phosphatase 123 H (45-117) U/L Total Protein 8.3 H (6.4-8.2) gm/dl Albumin 3.9 (3.4-5.0) gm/dl Globulin 4.4 H (2.5-4.0) gm/dl Albumin/Globulin Ratio 0.9 (0.9-2) COVID-19 Eval Order SARS-CoV-2, RNA, NAAT (NEGATIVE) SARS-CoV-2 Ag (Rapid) (Negative) Medications Administered Current Inpatient Medications Acetaminophen (Acetaminophen 325 Mg Tab) 650 mg PO Q4H PRN PRN Reason: pain/fever Stop: 12/29/20 18:52 Metronidazole (Flagyl) 500 mg in 100 mls @ 100 mls/hr IV Q8H ELADIA; Protocol Stop: 12/09/20 18:59 Last Infusion: 11/30/20 03:19 Dose: Infused Documented by: Sodium Chloride (Nss 1000ml) 1,000 mls @ 125 mls/hr IV .Q8H ELADIA Stop: 12/29/20 17:53 Last Infusion: 11/30/20 03:19 Dose: 125 mls/hr Documented by: Ceftriaxone Sodium 2,000 mg/ (Dextrose) 70 mls @ 100 mls/hr IV DAILY ELADIA; Protocol Stop: 12/10/20 14:59 Vancomycin HCl 2,000 mg/ (Sodium Chloride) 540 mls @ 200 mls/hr IV Q8H ELADIA Stop: 12/09/20 15:59 Last Admin: 11/30/20 07:17 Dose: 200 mls/hr Documented by: Miscellaneous Information (Vancomycin Consult Active) 1 ea N/A UD PRN PRN Reason: Consult Stop: 12/29/20 15:18 Morphine Sulfate (Morphine Sulfate 4 Mg/Ml 1 Ml Carp\Vial) 3 mg IV Q4H PRN PRN Reason: pain Stop: 12/13/20 17:53 Last Admin: 11/30/20 00:33 Dose: 3 mg Documented by: Tramadol HCl (Tramadol Hcl 50 Mg Tablet) 50 mg PO Q4H PRN PRN Reason: Pain Stop: 12/29/20 17:53
--- NOTE | 2020-11-30 09:50 | History & Physical Bridge Note ---
Date of Service November 30, 2020 History & Physical Bridge Note I have examined the patient, reviewed the History & Physical and in the interval since the performance of the History & Physical I have noted the following changes of clinical significance: no changes noted. We will plan I&D with extractions naso-labial/periorbital area right side.
--- NOTE | 2020-11-30 09:51 | Anesthesiology Consultation ---
Date of Service November 30, 2020 Assessment & Plan (1) Encounter for pre-operative examination: Chart Review Chart Review: Acceptable Risk for Surgery Consults Requested none ASA ASA2 Proposed Anesthesia Anesthesia Type: General Risk / Benefits Reviewed With: PT / POA / Parent / Guardian, Accepts Plan and Informed Consent Obtained History Surgery Operation Date: 11/30/20 09:30 Proposed Procedures p Incision and Drainage Nasal Facial Infection, - Angel Yeager DMD s Extraction of Teeth - Angel Yeager DMD Height/Weight Height: 5 ft 10 in Weight: 104.1 kg Allergies Allergy/AdvReac Type Severity Reaction Status Date / Time amoxicillin Allergy Unknown Unknown Unverified 11/29/20 14:19 Medications Home Medications Medication Instructions Recorded Confirmed Last Taken clindamycin HCl 300 mg PO TID 11/29/20 11/29/20 11/29/20 lisdexamfetamine [Vyvanse] 60 mg PO QAM 11/29/20 11/29/20 11/26/20 Active Medications Generic Name Dose Route Start Last Admin Trade Name Freq PRN Reason Stop Dose Admin Metronidazole 500 mg in 100 mls @ 100 mls/hr 11/29/20 19:00 11/30/20 03:19 Flagyl IV 12/09/20 18:59 Infused Q8H [facility] Infusion Protocol Sodium Chloride 1,000 mls @ 125 mls/hr 11/29/20 17:54 11/30/20 03:19 Nss 1000ml IV 12/29/20 17:53 125 mls/hr .Q8H [facility] Infusion Vancomycin HCl 2,000 mg/ 540 mls @ 200 mls/hr 11/30/20 00:00 11/30/20 07:17 Sodium Chloride IV 12/09/20 15:59 200 mls/hr Q8H [facility] Administration Morphine Sulfate 3 mg 11/29/20 17:54 11/30/20 00:33 Morphine Sulfate 4 Mg/Ml 1 Ml Carp\Vial IV 12/13/20 17:53 3 mg Q4H PRN Administration pain NPO Date Last Intake of Fluids: 11/29/20 Time Last Intake of Fluids: 23:30 Date Last Intake of Solids: 11/29/20 Time Last Intake of Solids: 22:00 Past Medical History Medical History ADHD (attention deficit hyperactivity disorder) Exercise / Class Metabolic Activity II 4-5 Yardwork/Stairs/Walk up hill Past Anesthesia History No Hx of Anesthesia Complications and No Family Hx of Anesthesia Complications History of PONV No Hx of PONV and No Hx of Motion Sickness Social History Smoking Status: Current some day smoker tobacco type: cigarettes Smoking cigarettes per day: 1-2 per week Do You Dip or Chew Tobacco: No Hx Alcohol Use: Yes Alcohol type: wine alcohol intake frequency: a few times a week Hx Substance Use: Yes substance use type: prescription drug Substance Use Type Other:: vivance per provider order Last Used Substance: Days (ago) Physical Exam Vital Signs Last Vital Signs Temp 99.0 F 11/30/20 09:29 Pulse 96 H 11/30/20 09:29 Resp 18 11/30/20 09:29 BP 104/87 11/30/20 09:29 Pulse Ox 99 11/30/20 09:29 ENMT Mouth: no dentition abnormality Thyromental Distance: > or= 3.5 Finger Breadths Mallampati Class: II Neck normal visual inspection Respiratory normal respiratory effort Auscultation: lungs clear to auscultation bilaterally Cardiovascular Rate/Rhythm: regular rate and regular rhythm Testing Laboratory Results 11/30/20 06:49 11/30/20 06:49
[2020-11-30] MEDS ORDERED: ePHEDrine sulfate 50 MG/ML AMP IV PRN (09:53)
[2020-11-30] MEDS ORDERED: ONDANSETRON INJ 2 MG/ML 2 ML VIAL IV PRN (09:53)
[2020-11-30] MEDS ORDERED: ATROPINE SULFATE 0.1 MG/ML 10ML SYR IV PRN (09:53)
[2020-11-30] MEDS ORDERED: LIDOCAINE/EPINEPHRINE 1.7 ML CTR ONE (10:42)
[2020-11-30] MEDS ORDERED: CHLORHEXIDINE GLUCONATE 0.12% 480 ML ONE (10:43)
[2020-11-30] MEDS ORDERED: PROPOFOL IV EMULSION 10 MG/ML 20 ML VIAL IV ONE (10:44)
[2020-11-30] MEDS ORDERED: ROCURONIUM BROMIDE 10 MG/ML 5 ML VIAL IV ONE ×5 (10:44→11:36)
[2020-11-30] MEDS ORDERED: SUCCINYLCHOLINE CHLORIDE 20 MG/ML 10 ML VIAL IV ONE (10:44)
[2020-11-30] MEDS ORDERED: MIDAZOLAM HCL 1 MG/ML 2ML VIAL ONE (10:44)
[2020-11-30] MEDS ORDERED: DEXAMETHASONE SOD INJ 4 MG/ML VIAL ONE (10:44)
[2020-11-30] MEDS ORDERED: LIDOCAINE 2% 2 ML VIAL/AMP(20MG/ML) INFIL ONE (10:44)
[2020-11-30] MEDS ORDERED: fentaNYL citrate 100 MCG/2 ML VIAL ONE (10:44)
[2020-11-30] MEDS ORDERED: ONDANSETRON INJ 2 MG/ML 2 ML VIAL ONE (10:44)
[2020-11-30] MEDS ORDERED: LARYING-O-JET KIT (LTA) ONE (10:44)
--- NOTE | 2020-11-30 11:49 | Post Operative Brief Note ---
[facility] Immediate Post Op with CF Date of Surgery November 30, 2020 Pre & Post Diagnosis Operation Date: 11/30/20 09:30 Pre-Op Diagnosis: DENTAL ABSCESS Post-Op Diagnosis: DENTAL ABSCESS I identified the patient and participated in the time-out.: Yes Procedure Operation Date: 11/30/20 09:30 Actual Procedures p Incision and Drainage Nasal Facial Infection and Incision and Drainage Left Submandibular Area,(Not Applicable) - Angel Yeager DMD s Extraction of Teeth 4, 7, 8, 18 - Angel Yeager DMD Surgeon Angel Yeager DMD Fluorescent Solution Mixer none Estimated Blood Loss 10 Findings Consistent with Post-Op Diagnosis Specimens Specimen Description: Culture 1. nasal lip infection (collected 1120) A. Cyst of Maxilla
[2020-11-30] MEDS: fentaNYL citrate 100 MCG/2 ML VIAL IV PRN ×2 (12:05→12:10)
--- NOTE | 2020-11-30 12:33 | Anesthesiology Progress Note ---
Date of Service November 30, 2020 Anesthesia Post Procedure Vital Signs Vital Signs: Temp Pulse Pulse Resp BP BP Pulse Ox 11/30/20 12:30 98.2 F 92 H 15 130/80 94 11/30/20 12:20 97 H 15 138/85 94 11/30/20 12:10 91 H 15 140/90 94 11/30/20 12:00 98.4 F 110 H 18 142/86 H 100 11/30/20 09:29 99.0 F 96 H 18 104/87 99 11/30/20 07:08 99.3 F 97 H 18 111/67 96 11/29/20 23:31 100.0 F H 107 H 17 152/91 H 93 11/29/20 18:32 98.4 F 95 H 18 137/86 100 11/29/20 17:03 95 H 18 138/90 98 11/29/20 15:38 91 H 18 137/85 100 11/29/20 14:39 88 18 128/79 97 11/29/20 13:28 98.6 F 90 18 131/86 98 Pain Intensity Right Face: Pain Intensity: 5 Transfer of Care Handoff Completed per policy Notes Mental Status: alert / awake / arousable and participated in evaluation Patient Amnestic to Procedure: Yes Nausea / Vomiting: adequately controlled Pain: adequately controlled Airway Patency, RR, SpO2: stable & adequate BP & HR: stable & adequate Hydration State: stable & adequate Anesthetic Complications: no major complications apparent and Pt Satisfied with anesthetic care
[2020-11-30] MEDS: cefTRIAXone SODIUM 2,000 MG in DEXTROSE 5% 50 ML IV SCH (14:16)
[2020-11-30] MEDS: traMADol HCL 50 MG TABLET PO PRN ×2 (14:52→19:38)
[2020-11-30] MEDS ORDERED: LORazepam 0.5 MG TAB PO PRN (15:23)
[2020-11-30] MEDS ORDERED: VANCOMYCIN TROUGH ONE (15:30)
--- NOTE | 2020-11-30 17:32 | Pharmacy Report ---
Pharmacy Abx Dose Progress Nt - Date of Service November 30, 2020 - Pharmacy Dosing Scope The patient is currently receiving the following antimicrobial agents per Pharmacy consult: VANCOMYCIN 2000mg IV every 8 hours - Objective Vital Signs (Past 12hrs): Vital Signs Temp Pulse Pulse Resp BP Pulse Ox 11/30/20 15:39 36.9 C 100 H 16 130/79 97 11/30/20 14:50 37.2 C 101 H 24 124/75 99 11/30/20 14:13 36.8 C 118 H 20 138/90 96 11/30/20 13:20 37.6 C H 108 H 24 126/81 94 11/30/20 12:55 37.3 C 115 H 20 96 11/30/20 12:45 110 H 16 116/72 96 11/30/20 12:30 36.8 C 92 H 15 130/80 94 11/30/20 12:20 97 H 15 138/85 94 11/30/20 12:10 91 H 15 140/90 94 11/30/20 12:00 36.9 C 110 H 18 142/86 H 100 11/30/20 09:29 37.2 C 96 H 18 104/87 99 11/30/20 07:08 37.4 C 97 H 18 111/67 96 Lab Results (24hrs): Laboratory Tests (24 Hours) 11/30/20 11/30/20 11/30/20 15:24 06:49 06:49 WBC 9.14 Neut # (Auto) 6.31 Creatinine 0.84 Est Cr Clr Drug Dosing 162.5 Vancomycin Trough 16.8 Micro Results: 11/30/20 Unknown Gram Stain - Final Sinus Aerobic and Anaerobic Culture - Pending - Assessment & Plan Assessment 25 year old M receiving VANCOMYCIN/FLAGYL/ROCEPHIN for treatment of dental abscess. Day # 2 of antimicrobial therapy Plan Vancomycin IV * Trough level of 16.8 mcg/mL is therapeutic. * Continue dose of 2000mg IV every 8 hours. * Goal trough level : 15 to 20 mcg/mL * Will recheck a trough level in a few days or with any changes in renal function. Pharmacy will continue to follow and will adjust dose/frequency as necessary. Thank you.
--- NOTE | 2020-11-30 19:56 | Operative Report ---
[facility] Post Operative Report Pre & Post Diagnosis Operation Date: 11/30/20 09:30 Pre-Op Diagnosis: DENTAL ABSCESS--Naso/facial swelling right side Post-Op Diagnosis: DENTAL ABSCESS--Naso/facial swelling rights side I identified the patient and participated in the time-out.: Yes Procedure Operation Date: 11/30/20 09:30 Actual Procedures p Incision and Drainage Naso- Facial Infection and Incision and Drainage Left subperiosteal abscess ,(Not Applicable) - Angel Yeager DMD s Extraction of Teeth 4, 7, 8, 18 - Angel Yeager DMD Actual Procedures p Incision and Drainage Naso/facial/ right periorbital , Subperiosteal Abscess left side # 18 area ; Removal of Tooth #4,7,8,and 18 (Not Applicable) - Angel Yeager DMD Once cleared for surgery general anesthesia was achieved, the eyes were protected by the anesthesia dept criteria. A time out was take for patient ID, antibiotics, equipment and position verification once all agreed the procedure began. Local anesthesia using lidocaine with a vasoconstrictor ( 1.8 ml per site) given into left inferior alveolar nerve and infiltration palate and pre- maxillary area right side. A throat pack was placed after the oral cavity was irrigated with saline and Peridex. Once a surgical level of anesthesia was obtained and the local anesthesia was given time for the blocks the surgery was started. I turned my attention to the infection which was located upper lip, base of nose, palate, infraorbital area also subperiosteal swelling lower left post erior area. The lip, nose, right eye was very swollen and there was also swelling associated with tooth # 18 ( see CT scan report) Incision and Drainage I turned my attention to the anterior maxilla, swollen upper lip and infraorbital area right side. From the CT scan there was a 2 cm radiolucency with associated bone defect extending to the palate and pre-maxilla. Tooth # 4,7 and 8 were grossly loose and the surrounding gingival tissue was swollen, red and infected. Pus was draining from the area. A 15 blade was used to make a incision to reflect the tissue from tooth # 3 to tooth #11. Once the tissue was reflected--pus extruded from the lip, infraorbital area and palate--cultures were obtained.This drainage was cultured for anaerobic and aerobic bacteria. Teeth 4,7,8 were removed and the devital bone was removed--this now exposed the large 2 cm defect. Curettes were used to remove all infected cystic material from the cyst cavity. I now drained the upper lip, palate and infraorbital area with a hemostat to open up any pockets of pus. Once this was done there was no further pus expressed. The tissue was very infected--I trimmed the devital tissue and after I was satisfied with the condition of the post surgical sites closure was obtained with a 2-0 chromic suture. There was a large bony defect that was left.This will need to be addressed once the acute phase is over. I now turned my attention to the lower left side. Using a 15 blade an incision was made lateral to the alveolar ridge and medial to the duct of the submandibular gland. Once the incision was made a lot of pus extruded from the site. A curved hemostat was carefully placed into the infected space along the medial side of the lower jaw and into the submental space. Some further drainage was now allowed to escape. I pressed on the side of the face left side area and no further drainage was expressed. The area was irrigated with at least 100 ml of NS solution. I now turned my attention to remove the # 18 tooth that was grossly infected and decayed. Lower # 28 The full thick Muco-periosteal flap was made on the facial aspect from # 26-30. The flap was reflected to expose the the subperiosteal space the bone adjacent to # 28. The rogue was used to remove bone, the tooth was removed with a 301 elevator, the mental nerve was intact, there was a large amount of granulation tissue on the apex and some more pus that was expressed. The site was closed with a 2-0 chromic. The wisdom teeth and other dental issues will be addressed in the future. At the end of the procedure- I removed the throat pack and suctioned the throat. Bilateral gauze pressure dressings were placed. All instrument and sponge count was correct. the patient was allowed to awake from the anesthesia. Once full awake the anesthesia tube was removed and the patient was taken to the recovery room with all vital sign stable. The patient tolerated the surgery very well. I will follow the patient in my office, Rx and instructions will be given upon discharge. Surgeon Angel Yeager, DMD Senior Hydrogeologist none Estimated Blood Loss 10 Findings Consistent with Post-Op Diagnosis Specimens C&S pre-maxilla Description of Procedure I&D facial infection and extraction of 4 teeth 4,7,8,18 I attest to the content of the Intraoperative Record and any orders documented therein. Any exceptions are noted below.
[2020-12-01] MEDS: VANCOMYCIN HCL 2,000 MG in SODIUM CHLORIDE 0.9% 500 ML IV SCH ×2 (00:05→09:01)
[2020-12-01] MEDS: SODIUM CHLORIDE 0.9% 1000ML 1,000 ML IV SCH ×2 (02:48→03:06)
[2020-12-01] MEDS: metroNIDAZOLE 500 MG/100 ML BAG IV SCH ×2 (03:08→10:29)
[2020-12-01 06:29] LABS: Basophils # (auto) 0.03 K/uL (0-0.2); Basophils % (auto) 0.5 %; Eosinophils # (auto) 0.21 K/uL (0-0.5); Eosinophils % (auto) 3.2 %; Hematocrit (blood only) 33.6 % (42-52); Hemoglobin 11.5 g/dL (14.0-18.0); Lymphocytes % (auto) 21.4 %; Mean Corpuscular Hemoglobin 31.8 pg (25-34); Mean Corpuscular Hgb Conc 34.2 g/dL (32-36); Mean Corpuscular Volume 92.8 fL (80-100); Monocytes # (auto) 0.67 K/uL (0.11-0.59); Monocytes % (auto) 10.2 %; Neutrophils # (auto) 4.24 K/uL (1.4-6.5); Neutrophils % (auto) 64.7 %; Platelet Count 240 K/uL (130-400); RDW Coefficient of Variation 12.2 % (11.5-14.5); RDW Standard Deviation 41.4 fL (36.4-46.3); Red Blood Count 3.62 M/uL (4.7-6.1); White Blood Count 6.55 K/uL (4.8-10.8)
[2020-12-01 07:00] LABS: BUN Creatinine Ratio 4.2 (10-20); Calcium 8.2 mg/dl (8.5-10.1); Creatinine Clr Calc Pharmacy 177.2 ml/min; Est GFR (African American) 146.2; Est GFR (Non-African American) 126.1; Potassium 3.7 mmol/L (3.5-5.1)
--- NOTE | 2020-12-01 09:39 | Hospitalist Progress Note ---
Date of Service December 01, 2020 Assessment & Plan (1) Dental abscess: Dental abscess Facial CT: 1. Poor dentition with multiple dental apical abscesses. 2. There is a large dental apical abscess involving the right maxillary central incisor with associated destruction of the anterior maxillary cortex. This is contiguous with a 21 mm right-sided premaxillary soft tissue abscess. There are secondary soft tissue inflammatory changes with thickening of the right nasolacrimal fold. --No signs of sepsis --Blood cultures pending --Started ceftriaxone plus Flagyl (Unasyn contraindicated secondary to penicillin allergy), vanco --As needed morphine, tramadol; IV fluids --maxillofacial surgeon Dr. Yeager consulted -- pt is now (11/30/2020) s/p Incision and Drainage Naso- Facial Infection and Incision and Drainage Left subperiosteal abscess ,(Not Applicable) - Angel Yeager, GOPI s Extraction of Teeth 4, 7, 8, 18 - Angel Yeager DMD --cultx from OR - pending - per dr. Yeager, d/c on clindamycin and flagyl, Rx sent to pt's pharmacy, follow up w/ Dr. Yeager on 12/06/2020 History of ADHD --Continue usual Vyvanse DVT prophylaxis SCDs for now Disposition: Discharge home Admission and Anticipated Discharge Date Admission Date: November 29, 2020 Subjective Pt seen in follow up of dental abscesses. Pt is laying in bed in NAD, underwent I&D and multiple tooth extraction w/ Dr. Yeager. Pain now well controlled. Facial edema much improved. No fever, chills, chest pain, shortness of breath, abd. pain, nausea. Pt is inquiring about going home. Review of Systems Review of Systems: All systems reviewed & are unremarkable except as noted in HPI & below Constitutional: no fever and no chills Respiratory: no cough and no dyspnea Cardiovascular: no chest pain and no palpitations Gastrointestinal: no abdominal pain, no nausea and no vomiting Physical Exam Physical Exam: General- young male, alert and oriented x 3, not in distress, speaks in sentences with no effort or accessory muscle use Head- atraumatic Eyes- PERRL, EOMI, anicteric ENT-positive right lower face swelling much improved Neck- supple, no JVD Lungs- clear to auscultation bilaterally, no rales/wheezes Heart- normal rate, regular rhythm; no murmur, no gallop, no rub appreciated Abdomen- normal bowel sounds, nondistended, soft, nontender Extremities- no pretibial edema, no calf tenderness; peripheral pulses intact Neuro- alert, oriented x 3; CN 2-12 grossly intact; motor 5/5 bilaterally;sensation 100% on all extremities; no other gross focal neurologic deficits Skin- warm & dry Results & Data Results & Data ([facility]) Vital Signs (Past 12 Hours) Vital Signs Temp Pulse Resp BP Pulse Ox 12/01/20 07:30 37.3 C 101 H 16 112/65 98 11/30/20 23:10 36.9 C 96 H 18 90/55 L 96 Laboratory Results 12/01/20 12/01/20 11/30/20 Range/Units 06:04 06:04 15:24 WBC 6.55 (4.8-10.8) K/uL RBC 3.62 L (4.7-6.1) M/uL Hgb 11.5 L (14.0-18.0) g/dL Hct 33.6 L (42-52) % MCV 92.8 (80-100) fL MCH 31.8 (25-34) pg MCHC 34.2 (32-36) g/dL RDW Std Deviation 41.4 (36.4-46.3) fL RDW Coeff of Autumn 12.2 (11.5-14.5) % Plt Count 240 (130-400) K/uL MPV 10.0 (7.4-10.4) fL Immature Gran % (Auto) 0.0 % Neut % (Auto) 64.7 % Lymph % (Auto) 21.4 % [place] % (Auto) 10.2 % Eos % (Auto) 3.2 % Baso % (Auto) 0.5 % Neut # (Auto) 4.24 (1.4-6.5) K/uL Lymph # (Auto) 1.40 (1.2-3.4) K/uL [place] # (Auto) 0.67 H (0.11-0.59) K/uL Eos # (Auto) 0.21 (0-0.5) K/uL Baso # (Auto) 0.03 (0-0.2) K/uL Immature Gran # (Auto) 0.00 (0.00-0.02) K/uL Sodium 141 (136-145) mmol/L Potassium 3.7 (3.5-5.1) mmol/L Chloride 111 H (98-107) mmol/L Carbon Dioxide 24 (21-32) mmol/L Anion Gap 6.0 (3-11) BUN 3 L (7-18) mg/dl Creatinine 0.77 (0.6-1.4) mg/dl Est Cr Clr Drug Dosing 177.2 ml/min Est GFR ( Amer) 146.2 Est GFR (Non-Af Amer) 126.1 BUN/Creatinine Ratio 4.2 L (10-20) Glucose 109 H (70-99) mg/dl Calcium 8.2 L (8.5-10.1) mg/dl Vancomycin Trough 16.8 (See Comment) mcg/ml Medications Administered Current Inpatient Medications Acetaminophen (Acetaminophen 325 Mg Tab) 650 mg PO Q4H PRN PRN Reason: pain/fever Stop: 12/29/20 18:52 Last Admin: 11/30/20 19:37 Dose: 650 mg Documented by: Metronidazole (Flagyl) 500 mg in 100 mls @ 100 mls/hr IV Q8H [facility]; Protocol Stop: 12/09/20 18:59 Last Infusion: 12/01/20 04:37 Dose: Infused Documented by: Sodium Chloride (Nss 1000ml) 1,000 mls @ 125 mls/hr IV .Q8H [facility] Stop: 12/29/20 17:53 Last Admin: 12/01/20 03:06 Dose: Not Given Documented by: Ceftriaxone Sodium 2,000 mg/ (Dextrose) 70 mls @ 100 mls/hr IV DAILY [facility]ADIA; Protocol Stop: 12/10/20 14:59 Last Infusion: 11/30/20 14:59 Dose: Infused Documented by: Vancomycin HCl 2,000 mg/ (Sodium Chloride) 540 mls @ 200 mls/hr IV Q8H [facility] Stop: 12/09/20 15:59 Last Admin: 12/01/20 09:01 Dose: 200 mls/hr Documented by: Lorazepam (Lorazepam 0.5 Mg Tab) 0.25 mg PO Q4H PRN PRN Reason: Anxiety Stop: 12/30/20 15:22 Miscellaneous Information (Vancomycin Consult Active) 1 ea N/A UD PRN PRN Reason: Consult Stop: 12/29/20 15:18 Morphine Sulfate (Morphine Sulfate 4 Mg/Ml 1 Ml Carp\Vial) 3 mg IV Q4H PRN PRN Reason: pain Stop: 12/13/20 17:53 Last Admin: 11/30/20 18:12 Dose: 3 mg Documented by: Tramadol HCl (Tramadol Hcl 50 Mg Tablet) 50 mg PO Q4H PRN PRN Reason: Pain Stop: 12/29/20 17:53 Last Admin: 11/30/20 19:38 Dose: 50 mg Documented by:
--- NOTE | 2020-12-01 09:46 | Oral/Maxillofacial Progress Nt ---
Date of Service I saw Mr Oneal last evening at 6 pm He is doing well I completed the D?C forms Rx will be e mailed to Rx in the AM I reviewed his post op care and need for follow up with me He has a follow p appointment on Dec 06 at 2:30 --he has my card with contact and emergency information The surgical sites look good. He will need to keep his mouth very clean and I will Call in the necessary antibiotics and pain meds to his Rx. Overall He is doing well He may be discharged on Thur AM as per hospital medicine If any questions please call me. Thanks Angel Yeager December 01, 2020 Assessment & Plan Admission and Anticipated Discharge Date Admission Date: November 29, 2020 Results & Data ([facility]) Vital Signs (Past 12 Hours) Vital Signs Temp Pulse Resp BP Pulse Ox 12/01/20 07:30 37.3 C 101 H 16 112/65 98 11/30/20 23:10 36.9 C 96 H 18 90/55 L 96 PG Care Time/CCT Total # of Minutes Spent Total Time Spent with Patient: Total time spent is greater than 50% in coordination of care (as documented) at patient's floor/unit and/or counseling patient: Coding Level of Care Code 35275 Subseq Hosp Care Lvl 2
[2020-12-01] MEDS: cefTRIAXone SODIUM 2,000 MG in DEXTROSE 5% 50 ML IV SCH (11:55)
--- NOTE | 2020-12-01 12:37 | Discharge Summary ---
Date of Service December 01, 2020 Admission HPI Per Admitting Provider Patient is a 25-year-old male with history of ADHD,tooth pain and facial swelling x2 days. Patient states that he was at usual state of health until 2 days ago when he started to have upper tooth pain which then progressed Associated with right-sided facial swelling. No fevers or chills, problems with swallowing or breathing. He had a telehealth visit 2 days ago and was placed on a course of clindamycin. Patient had total of 5 doses but was not improving. At the ER, patient was given ceftriaxone and clindamycin. On exam, patient is seen resting in bed, comfortable, not in distress States pain is adequately controlled, denies shortness of breath, tongue swelling, throat pain. No other symptoms Primary Care Provider: Alea Stewart MD Admission Exam Per Admitting Provider General- oriented x 3, not in distress, speaks in sentences with no effort or accessory muscle use Head- atraumatic Eyes- PERRL, EOMI, anicteric ENT-positive right lower face swelling, upper lip swelling No trismus Neck- supple, no JVD, no adenopathy, no thyromegaly; carotids +2/2, no bruits appreciated Lungs- clear to auscultation bilaterally, no rales/wheezes Heart- normal rate, regular rhythm; no murmur, no gallop, no rub appreciated Abdomen- normal bowel sounds, nondistended, soft, nontender, no masses or hepatosplenomegaly Extremities- no pretibial edema, no calf tenderness; peripheral pulses intact Neuro- alert, oriented x 3; CN 2-12 grossly intact; motor 5/5 bilaterally;sensation 100% on all extremities; no other gross focal neurologic deficits Skin- warm & dry Principal Diagnosis Acute facial infection, dental abscesses, s/p I&D and multiple tooth extraction Discharge Exam General- young male, alert and oriented x 3, not in distress, speaks in sentences with no effort or accessory muscle use Head- atraumatic Eyes- PERRL, EOMI, anicteric ENT-positive right lower face swelling much improved Neck- supple, no JVD Lungs- clear to auscultation bilaterally, no rales/wheezes Heart- normal rate, regular rhythm; no murmur, no gallop, no rub appreciated Abdomen- normal bowel sounds, nondistended, soft, nontender Extremities- no pretibial edema, no calf tenderness; peripheral pulses intact Neuro- alert, oriented x 3; CN 2-12 grossly intact; motor 5/5 bilaterally;sensation 100% on all extremities; no other gross focal neurologic deficits Skin- warm & dry Discharge Data Allergies Allergy/AdvReac Type Severity Reaction Status Date / Time amoxicillin Allergy Unknown Unknown Unverified 11/29/20 14:19 Consultations 11/29/20 17:54 Consult Oromaxillofacial Surgery Routine Procedures Performed Operation Date: 11/30/20 09:30 Actual Procedures p Incision and Drainage Nasal Facial Infection and Incision and Drainage Left Submandibular Area,(Not Applicable) - Angel Yeager DMD s Extraction of Teeth 4, 7, 8, 18 - Angel Yeager DMD Ordered Studies 11/29/20 12:58 CT facial bones w con Stat Hospital Course (1) Dental abscess: Dental abscess Facial CT: 1. Poor dentition with multiple dental apical abscesses. 2. There is a large dental apical abscess involving the right maxillary central incisor with associated destruction of the anterior maxillary cortex. This is contiguous with a 21 mm right-sided premaxillary soft tissue abscess. There are secondary soft tissue inflammatory changes with thickening of the right nasolacrimal fold. --No signs of sepsis --Blood cultures pending --Started ceftriaxone plus Flagyl (Unasyn contraindicated secondary to penicillin allergy), vanco --As needed morphine, tramadol; IV fluids --maxillofacial surgeon Dr. Yeager consulted -- pt is now (11/30/2020) s/p Incision and Drainage Naso- Facial Infection and Incision and Drainage Left subperiosteal abscess ,(Not Applicable) - Angel Yeager DMD s Extraction of Teeth 4, 7, 8, 18 - Angel Yeager DMD --cultx from OR - pending - per Dr. Yeager, d/c on clindamycin and flagyl, Rx sent to pt's pharmacy, follow up w/ Dr. Yeager on 12/06/2020 History of ADHD --Continue usual Vyvanse DVT prophylaxis SCDs for now Disposition: Discharge home Total Time Total Time Spent Total Time Spent (In Minutes): 35 Total Time Includes: Examination of the Patient, Discharge Planning, Medication Reconciliation and Communication With Other Providers Discharge Plan Discharge Items Patient Disposition: Home - Self-Care Reason For Visit: DENTAL ABSCESS Discharge Diagnosis: s/p acute facial infection, dental abscesses Condition on Discharge: Good Activity: Resume your previous activity Lifting: Gradually increase as tolerated Bathing: No limitations Exercise/Sports: Gradually increase as tolerated Driving/Machine Use: Resume 1 day after discharge Weightbearing: Full weightbearing Non-emergency contact: Surgeon Call non-emergency contact if: you have any medication questions, your symptoms worsen, your temperature is above 101.5, your wound has increased redness, your wound has increased drainage and your wound pain has increased Follow-up/Referrals: Alea Stewart MD [Primary Care Provider] - Angel Yeager DMD [Physician] - Diet: Other - See Diet Comment Diet Texture: Easy to Chew Diet Comment: clear--full--dental soft diet Addtl Attending Provider Instructions: ADDITIONAL ACTIVITY RECOMMENDATIONS: * [place] teeth after every meal. It is very important to keep your mouth clean to prevent infection. * Starting tonight rinse with the Peridex as directed then 2 x a day * it is very important to keep well hydrated, this prevents fever and possible dry socket pain SPECIAL CARE INSTRUCTIONS: *It is not uncommon that between day 2-4 that your swelling will be at its worst this is very normal, do not be alarmed. * apply heat (hot water bottle or heating pad) for the next two days, as often as possible -upper lip and right side of your face. * Tomorrow start rinsing your mouth with 1/2 teaspoon salt in 8 ounces warm water. This rinse should be used every 4-6 hours. * You may experience slight nausea. To prevent this, never take your medication on an empty stomach. If nauseated, take small sips of criss brandon until you feel better; then you may start on applesauce and toast. * Some swelling is common. It should gradually decrease within 4-5 days. * A certain amount of bleeding is to be expected. It is often possible to control mild oozing by placing folded gauze over the area and biting down for 30 minutes. If you are unable to control excessive bleeding, call Dr Yeager at [phone] * You may experience some discomfort for a few days. If pain or swelling increases, Call Dr Yeager * Return to the office for a follow up check up if one was given to you. * If you do not have a follow up appointment please call the office at [phone] and set one up for 10-15 days after your surgery Addtl Overhead Irrigator Provider Instructions: Follow up with Dr. Yeager on Dec 06 at 2:30 pm. Pending Studies at Discharge: Yes Studies:: results of C&S Stand-Alone Forms: My [facility], Opioid Pain Management, Smoking Cessation Medications and DC Order Prescriptions: Continued clindamycin HCl 300 mg capsule 300 mg PO Q8H 7 Days Qty: 30 RF: 0 metronidazole [Flagyl] 500 mg tablet 500 mg PO Q8H 7 Days Qty: 21 RF: 0 hydrocodone-acetaminophen 5-325 mg tablet 1 tab PO Q4H PRN (Reason: pain) Qty: 14 RF: 0 Vyvanse 60 mg capsule 60 mg PO QAM RF: 0 Discharge Orders: Discharge Order (Routine); Ordered 12/01/20 Ordered By: Eliu Willis/Other Patient Handouts: Dental Abscess, ED Dental Abscess Facial Cellulitis Admission Data Admit Date/Time: 11/29/20 16:46 Attending Provider: Eliu Woods Admit Provider: George Carrion Primary Care Provider: Alea Stewart Other Providers: George Carrion ; Angel Yeager
== END 2020-12-01 13:35 | disposition home or self-care (01) | DRG 138 ==
LOC: ED 12:21 → SUATTDRO 16:46 → 3N 16:46